=== PATIENT | female | born 1990 | race Caucasian/White ===

== ENCOUNTER 2016-10-14 21:35 | Emergency (ER) | payer OTHER ==
[~2016-10-14] VITALS: Ht 124.5 cm; Wt 44.5 kg
--- NOTE | ~2016-10-14 | US61 ---
[facility] A Service of [facility] & [facility] RADIOLOGY TEXT RESULTS PATIENT: MIGUELINA ZHONG LOCATION: CFTX : 88 UNIT #: [id number] AGE: [address]: Gia Watson APRN SEX: F ORDER DR: [id number] [facility] [address] [place], [place] [address] [id number] E MR#: [id number] Acc #: [id number] NAME: MIGUELINA ZHONG : 1990 SEX: F STUDY DATE/TIME: 10/15/2016 0:07 UNIT: CFTX ROOM: STUDY DESCRIPTION: US /Mat <14Wk / Attending Physician: Gia Watson A.P.R.N. Ordering Physician: Gia Watson A.P.R.N. Primary Care Physician: Angelina Minaya M.D. MEDICAL IMAGING REPORT This report is preliminary unless electronic signature is present EXAM Pelvic ultrasound INDICATIONS patient with left lower quadrant abdominal and pelvic pain for the past day. Beta HCG level 72,505. PROCEDURE Valerio-scale and Doppler imaging of the pelvis via transabdominal transvaginal approach. FINDINGS The uterus is anteverted measures 9.2 x 5.5 x 7.3 cm. The gestational sac endometrial cavity. Normal-appearing yolk sac. pole shows a heart rate of 130 beats per minute. There is a very thin subchorionic hemorrhage along the anterior aspect the gestational sac. [place]-rump length is 8 mm consistent gestational age of 6 weeks and 5 days. Ovaries are unremarkable. IMPRESSION 1. Single intrauterine . Heart rate 130 beats per minute. 2. Very thin subchorionic hemorrhage along the anterior aspect of the gestational sac. Dictated by... Kris Mayen M.D. THIS IS AN ELECTRONICALLY VERIFIED REPORT Kris Mayen M.D. at 10/15/2016 10:24 PM EED/marizol [facility] A Service of [facility] RADIOLOGY TEXT RESULTS PATIENT: MIGUELINA ZHONG LOCATION: [facility] : [birth year] UNIT #: [id number] AGE: [address]: Gia Watson APRN SEX: F ORDER DR: TD: 10/15/2016 07:35 JOB #: [id number] MEDICAL IMAGING REPORT Page 1 of 1 COPY
[2016-10-14 22:45] LABS: URINE SOURCE CLEAN CATCH
[2016-10-14 22:52] LABS: URINE APPEARANCE CLEAR; URINE BILIRUBIN NEG (NEG); URINE BLOOD NEG (NEG); URINE COLOR YELLOW; URINE GLUCOSE NEG (NEG); URINE KETONE TRACE (NEG); URINE LEUKOCYTE ESTERASE 2+ (NEG); URINE NITRATE NEG (NEG); URINE PROTEIN NEG (NEG); URINE SPECIFIC GRAVITY 1.026 (1.003-1.035)
[2016-10-14 22:55] LABS: CULTURE INDICATED? YES; URBCS1 AUWI 0-2 /[HPF] (0-2); URINE BACTERIA AUWI NEG (NEGATIVE); URINE SQUAMOUS EPITHELIAL CELL NONE SEEN /[HPF]; UWBCS1 AUWI 25-50 (0-5)
[2016-10-14 23:22] LABS: BASOPHIL% 0.5 % (0-2.5); DIFF IND NO; EOSINOPHIL# 0.1 X10e3 (0-0.7); EOSINOPHIL% 0.7 % (0.0-7.0); HEMOGLOBIN 12.8 gm/dL (12.0-16.0); LYMPHOCYTE# 2.3 X10e3 (1.0-3.5); LYMPHOCYTE% 22.2 % (17.0-45.0); MEAN CELL VOLUME 83.5 FL (83-96); MEAN CORPUSCULAR HEMOGLOBIN 28.1 PG (28-34); MEAN CORPUSCULAR HGB CONC 33.6 g/dL (30-36); MEAN PLATELET VOLUME 8.2 FL (6.5-11.5); MONOCYTE# 0.8 X10e3 (0-1.0); MONOCYTE% 8.3 % (3.0-12.0); NEUTROPHIL% 68.3 % (40-75); PLATELET COUNT 278 X10e3 (140-420); RED BLOOD COUNT 4.55 X10e (3.90-5.30); RED CELL DISTRIBUTION WIDTH 15.3 % (11.0-15.5); WHITE BLOOD COUNT 10.2 X10e3 (4.0-10.5)
[2016-10-14 23:45] LABS: BUN/CREATININE RATIO 15.71; CALCIUM SERUM 8.9 mg/dL (8.4-10.2); CREATININE SERUM 0.7 mg/dL (0.6-1.4); GLOM FILT RATE Estimated 118.7 mL/min (>60); POTASSIUM 3.5 mmol/L (3.5-5.1)
[2016-10-17 20:10] LABS: CHLAMYDIA TRACH Not Detected (Not Detected); N GONOR Not Detected (Not Detected)
== END 2016-10-15 01:00 | disposition home or self-care (01) ==
LOC: CED 21:35 → CFTX 21:35
PROVIDERS: Nurse Practitioner
DX: O23.41 Unspecified infection of urinary tract in pregnancy, first trimester (principal); Z3A.01 Less than 8 weeks gestation of pregnancy
CPT/HCPCS: 36415; 76801; 80048; 81003; 84702; 84703; 85025; 87086; 87491; 87591; 87808; 87905; 99284